=== PATIENT | female | born 1960 | race Caucasian/White ===

== ENCOUNTER 2018-07-25 20:31 | Observation (INO) ==
[2018-07-25 21:09] LABS: Basophils # (Auto) 0 K/mcL (0.0-0.3); Basophils % (Auto) 0.6 % (0.0-2.0); Eosinophils # (Auto) 0.1 K/mcL (0.0-0.7); Eosinophils % (Auto) 0.7 % (0.0-7.0); Granulocytes % (Auto) 52.6 % (38.0-78.0); Lymphocytes # (Auto) 2.8 K/mcL (1.5-4.8); Lymphocytes % (Auto) 38.4 % (15.5-49.0); Mean Cell Volume 95.1 fL (80.0-100.0); Mean Corpuscular HGB Conc 34.1 g/dL (31.0-36.0); Mean Corpuscular Hemoglobin 32.4 pg (26.0-34.0); Monocytes # (Auto) 0.6 K/mcL (0.1-0.9); Monocytes % (Auto) 7.7 % (1.0-12.0); Platelet Count 252 K/mcL (140-440); RBC 4.17 M/mcL (4.00-5.20); Red Cell Distribution Width 13.6 % (11.5-14.5)
--- NOTE | 2018-07-25 21:26 | Emergency Department Note ---
Abdominal Pain HPI - General Chief Complaint: Abdominal Pain Stated Complaint: upper abdominal pain Time Seen by Provider: 07/25/18 21:23 Source: patient Mode of arrival: ambulatory Limitations: no limitations - History of Present Illness HPI Narrative: This pleasant 58-year-old female comes in with pain onset around 7 or 730 this evening described as wrapping all the way around her abdomen just at the level of her lower ribs and upper abdomen area. She has had maybe 8 episodes similar to this in the past several months. The last was 5 days ago was only a short duration of may be a half an hour. Previous to that on the when she had a larger workup here for chest pain, the episode had lasted for hours. It does not seem to be related to meals. There is no associated nausea or vomiting or sweatiness or diarrhea or constipation or hematochezia. There is no change in her frequency which she has chronically unusual. No fevers chills or sweats. Does get some heartburn on occasion and takes Pepto-Bismol for this it has not been helpful. REVIEW OF SYSTEMS: No chest pain No back pain No headaches, weakness, dizziness. Has some chronic anxiety and depression. She is on Wellbutrin. - Related Data Allergies Allergy/AdvReac Type Severity Reaction Status Date / Time Tetracycline Allergy Verified 07/08/18 10:28 Erythromycin Base AdvReac Verified 07/08/18 10:28 Abdominal Pain PMH - Past Medical History Medical history: Reports: GERD (Somewhat minor with 7 episodes a few months ago. ). Denies: DM, hypertension Reports: other (Urinary tract infections). Denies: diverticulitis, kidney stone , pancreatitis, peptic ulcer disease Psychiatric history: Reports: anxiety, depression (Taking Wellbutrin) Family history: Reports: other (Father history of cardiac disease) - Social History Smoking status: Former smoker (Quit 3 years ago) Alcohol use: Reports: Occasionally (Few times a month) Drug use: Reports: none. Denies: marijuana Physical Exam Limitations: no limitations General appearance: alert, in no apparent distress Head: atraumatic, normocephalic Neck: Present: trachea midline. Absent: lymphadenopathy, thyromegaly Chest: Present: symmetric chest wall rise Respiratory: Present: normal lung sounds bilaterally. Absent: respiratory distress, wheezes, stridor, accessory muscle use, prolonged expiratory phase Cardiovascular: Present: regular rate, normal rhythm. Absent: systolic murmur, diastolic murmur Abdominal: Present: soft, tenderness (Subjectively only across the xiphoid level and right and left upper abdomen area.). Absent: distention, guarding, rebound, rigidity, organomegaly, mass Extremities: Absent: pedal edema, pretibial edema, calf tenderness Back: Absent: CVA tenderness (R), CVA tenderness (L), spinous process tenderness Neurological: Present: alert, oriented X3 Psychiatric: Present: normal affect, normal mood Skin: Present: warm, dry Course Course Narrative: 9 PM - upper abdominal pain with episodic pattern not related with food intake but in age group and risk factors for cholelithiasis. Will do abdominal ultrasound and labs. 9:15 PM approximately - ultrasound reported as full of stones but was not tender with the ultrasound probe overlying. Pancreas head was negative but the rest of the pancreas was not visualized. There is no gallbladder wall thickening. The common bile duct was 6 mm which is at the upper end of normal for her age group. Liver echogenic (fatty liver probably). Labs still pending. 9:35 PM - labs with an unremarkable CBC and a CMP that is fairly unremarkable except for a mildly elevated transaminase. Vital Signs Temperature 97.6 F 07/25/18 20:31 Pulse Rate 78 07/25/18 20:31 Respiratory Rate 14 07/25/18 20:31 Blood Pressure 154/113 07/25/18 20:31 Pulse Oximetry (%) 100 07/25/18 20:31 Temperature 97.6 F 07/25/18 20:31 Pulse Rate 75 07/25/18 21:46 Respiratory Rate 12 07/25/18 20:48 Blood Pressure 130/86 07/25/18 21:46 Pulse Oximetry (%) 97 07/25/18 21:46 Abdominal Pain - Lab Data Result diagrams: 07/25/18 20:40 07/25/18 20:40 Lab Results 07/25/18 07/25/18 07/25/18 Range/Units 20:40 20:40 20:40 WBC 7.4 (4.5-11.0) K/mcL RBC 4.17 (4.00-5.20) M/mcL Hgb 13.5 (12.0-15.0) g/dL Hct 39.6 (36.0-48.0) % MCV 95.1 (80.0-100.0) fL MCH 32.4 (26.0-34.0) pg MCHC 34.1 (31.0-36.0) g/dL RDW 13.6 (11.5-14.5) % Plt Count 252 (140-440) K/mcL MPV 8.6 (7.4-10.4) fL Gran % 52.6 (38.0-78.0) % Lymph % (Auto) 38.4 (15.5-49.0) % Marin % (Auto) 7.7 (1.0-12.0) % Eos % (Auto) 0.7 (0.0-7.0) % Baso % (Auto) 0.6 (0.0-2.0) % Gran # 3.9 (1.8-8.0) K/mcL Lymph # (Auto) 2.8 (1.5-4.8) K/mcL Marin # (Auto) 0.6 (0.1-0.9) K/mcL Eos # (Auto) 0.1 (0.0-0.7) K/mcL Baso # (Auto) 0 (0.0-0.3) K/mcL Sodium 138 (133-145) mmol/L Potassium 3.8 (3.3-5.1) mmol/L Chloride 99 (96-108) mmol/L Carbon Dioxide 26 (22-30) mmol/L Anion Gap 13.0 (8-16) BUN 26 H (6-20) mg/dl Creatinine 1.0 (0.6-1.1) mg/dl GFR Calculation 63 Glucose 84 (70-105) mg/dL Calcium 9.7 (8.6-10.4) mg/dl Total Bilirubin 0.3 (0.0-1.0) mg/dL AST 61 H (0-37) U/l ALT 37 (0-40) U/l Alkaline Phosphatase 80 (39-117) U/L Troponin T < 0.01 (0-0.03) ng/ml Total Protein 7.3 (5.9-8.4) gm/dL Albumin 4.5 (3.2-5.2) gm/dL Globulin 2.8 (2.2-3.7) gm/dL Albumin/Globulin Ratio 1.6 (1.0-2.3) Lipase 38 (7-60) U/L Urine Color Urine Appearance Urine pH (5.0-9.0) Ur Specific [place] (1.000-1.035) Urine Protein (NEG) mg/dL Urine Glucose (UA) (NEG) mg/dL Urine Ketones (NEG) mg/dL Urine Occult Blood (<0.03) mg/dL Urine Nitrate (NEG) Urine Bilirubin (NEG) mg/dL Urine Urobilinogen (NEG) mg/dL Ur Leukocyte Esterase (NEG) /uL Urine RBC (0-1) /hpf Urine WBC (0-4) /hpf Ur Squamous Epith Cells (0-4) /hpf Urine Bacteria (0) /hpf Hyaline Casts (0-2) /lpf Urine Mucus (0) /hpf 07/25/18 Range/Units 21:45 WBC (4.5-11.0) K/mcL RBC (4.00-5.20) M/mcL Hgb (12.0-15.0) g/dL Hct (36.0-48.0) % MCV (80.0-100.0) fL MCH (26.0-34.0) pg MCHC (31.0-36.0) g/dL RDW (11.5-14.5) % Plt Count (140-440) K/mcL MPV (7.4-10.4) fL Gran % (38.0-78.0) % Lymph % (Auto) (15.5-49.0) % Marin % (Auto) (1.0-12.0) % Eos % (Auto) (0.0-7.0) % Baso % (Auto) (0.0-2.0) % Gran # (1.8-8.0) K/mcL Lymph # (Auto) (1.5-4.8) K/mcL Marin # (Auto) (0.1-0.9) K/mcL Eos # (Auto) (0.0-0.7) K/mcL Baso # (Auto) (0.0-0.3) K/mcL Sodium (133-145) mmol/L Potassium (3.3-5.1) mmol/L Chloride (96-108) mmol/L Carbon Dioxide (22-30) mmol/L Anion Gap (8-16) BUN (6-20) mg/dl Creatinine (0.6-1.1) mg/dl GFR Calculation Glucose (70-105) mg/dL Calcium (8.6-10.4) mg/dl Total Bilirubin (0.0-1.0) mg/dL AST (0-37) U/l ALT (0-40) U/l Alkaline Phosphatase (39-117) U/L Troponin T (0-0.03) ng/ml Total Protein (5.9-8.4) gm/dL Albumin (3.2-5.2) gm/dL Globulin (2.2-3.7) gm/dL Albumin/Globulin Ratio (1.0-2.3) Lipase (7-60) U/L Urine Color Yellow Urine Appearance Clear Urine pH 6.0 (5.0-9.0) Ur Specific [place] 1.025 (1.000-1.035) Urine Protein Neg (NEG) mg/dL Urine Glucose (UA) Negative (NEG) mg/dL Urine Ketones 5/tr A (NEG) mg/dL Urine Occult Blood Neg (<0.03) mg/dL Urine Nitrate Neg (NEG) Urine Bilirubin Neg (NEG) mg/dL Urine Urobilinogen 4.0 A (NEG) mg/dL Ur Leukocyte Esterase 500 A (NEG) /uL Urine RBC 2 H (0-1) /hpf Urine WBC 14 H (0-4) /hpf Ur Squamous Epith Cells 1 (0-4) /hpf Urine Bacteria 0 (0) /hpf Hyaline Casts 4 H (0-2) /lpf Urine Mucus Mod (0) /hpf Disposition Pt seen by [employer]ARD/PA only: No Clinical Impression: Elevated transaminase measurement Abdominal pain Qualifiers: Abdominal location: upper abdomen, unspecified Qualified Code(s): R10.10 - Upper abdominal pain, unspecified Cholelithiases Qualifiers: Cholelithiasis location: gallbladder Cholecystitis presence: without cholecystitis Biliary obstruction: without biliary obstruction Qualified Code(s) : K80.20 - Calculus of gallbladder without cholecystitis without obstruction Summary: With patient having elevated liver function tests, recurrent biliary colic type of episodes, and a gallbladder full of cholelithiasis ease, I spoke with Dr. Lopez who kindly accepted this patient for admission and probable near future cholecystectomy. This was discussed with patient who was in agreement. Disposition: Xfer As Inpt ([facility]) Condition: Good Instructions: Biliary Colic (ED), Low Fat Diet (ED), Acute Abdominal Pain (ED) , Gas and Bloating (ED) Referrals: Aisha Chatman [Primary Care Provider] -
[2018-07-25 21:28] LABS: ALT/SGPT 37 U/l (0-40); Albumin 4.5 gm/dL (3.2-5.2); Albumin/Globulin Ratio 1.6 (1.0-2.3); Alkaline Phosphatase 80 U/L (39-117); Blood Urea Nitrogen 26 mg/dl (6-20); Lipase 38 U/L (7-60)
[2018-07-25 22:23] LABS: Appearance,Urine CLEAR; Bacteria,Urine 0 /hpf (0); Bilirubin,Urine NEG (NEG); Color,Urine YELLOW; Glucose,Urine (UA) NEGATIVE (NEG); Leukocyte Esterase,Urine 500 /uL (NEG); Mucus,Urine MOD /hpf (0); Protein,Urine NEG (NEG); Specific Gravity,Urine 1.025 (1.000-1.035); Urine Blood NEG mg/dL (<0.03); Urine Hyaline Cast 4 /lpf (0-2); Urine RBC 2 /hpf (0-1); Urine Squamous Epithelial Cell 1 /hpf (0-4); Urine WBC 14 /hpf (0-4)
[2018-07-25] MEDS ORDERED: ONDANSETRON 4 MG/2 ML VIAL IV PRN (22:47)
[2018-07-25] MEDS ORDERED: ZOLPIDEM 5 MG TABLET PO PRN (22:47)
[2018-07-25] MEDS ORDERED: HYDROmorphone 2 MG/ML VIAL IV PRN (22:47)
--- NOTE | 2018-07-25 22:57 | General Surg History&Physical ---
History of Present Illness Patient information: Note initiated : 07/25/18 at 10:55 pm Service Date, if different from initiated Date: [] Patient: Cha Sutherland a 58 y/o F admitted on for upper abdominal pain. Chief Complaint: [] HPI: Ms. Sutherland is a 58 year old F admitted with symptomatic gallstone disease. The patient has had severe upper abdominal pain with at least 8 episodes over the past 2 months. Her last prior episode was on Friday of this week. She has right upper quadrant and Epigastric pain which radiates across her abdomen and into her back. She was evaluated for cardiac disease with negative findings.. upper abdominal ultrasound reveals multiple gallstones with normal bile duct. Her liver panel is normal.. Patient had relief of symptoms with analgesics, however, she still has mild tenderness to deep palpation. Patient is admitted with plans for cholecystectomy in the morning Review of Systems - Gastrointestinal abdominal pain, bloating, heartburn, nausea - Musculoskeletal arthralgias, other (joint pains) - Psychiatric depression - Hematologic/Lymphatic no easy bleeding, no easy bruising, no lymphadenopathy Past History Past medical history: . Moderate depression Past surgical history: Tubal ligation. Right knee arthroscopy Past family history: Father in his 50s due to coronary artery disease. Local with coronary artery disease. Mother age 81 with no known medical illness Past social history: Former smoker. Occasional use of alcohol. Denies drug use Medications and Allergies Home Medications Medication Instructions Recorded Confirmed Type No Known Home Meds 07/25/18 07/25/18 History Allergies Allergy/AdvReac Type Severity Reaction Status Date / Time Tetracycline Allergy Verified 07/08/18 10:28 Erythromycin Base AdvReac Verified 07/08/18 10:28 Exam Temp Pulse Resp BP Pulse Ox 97.6 F 75 12 130/86 97 07/25/18 20:31 07/25/18 21:46 07/25/18 20:48 07/25/18 21:46 07/25/18 21:46 - General physical appearance well developed, well nourished, no distress - Eyes PERRL, normal ocular movement - ENT normal pinna, normal nares, normal mucosa, no hearing loss, no congestion - Head Head exam IM: Present: atraumatic, normocephalic - Neck no masses, no bruits, trachea midline, no lymphadectomy, no venous distension - Cardiovascular Cardiovascular exam IM: Present: normal rate and rhythm - Respiratory normal expansion, normal respiratory effort, clear to percussion, clear to auscultation - Abdomen Abdomen: Present: soft, tender (mild epigastric tenderness and right subcostal tenderness), bowel sounds Hernia: Present: none - Genitourinary Present: normal external genitalia - Integumentary Present: no rash, no growths, no abnormal pigmentation - Neurologic Present: normal coordination, normal sensation - Musculoskeletal Present: normal gait, normal posture - Psychiatric Present: oriented to time, oriented to person, oriented to place, speech is normal, memory intact Assessment and Plan (1) Cholelithiasis with cholecystitis without obstruction Nothing by mouth after midnight.. Start Zosyn for antibiotic coverage. Plan for cholecystectomy tomorrow Status: Acute Qualifiers: Cholelithiasis location: gallbladder Cholecystitis acuity: chronic Qualified Code(s): K80.10 - Calculus of gallbladder with chronic cholecystitis without obstruction
[2018-07-25] MEDS: 0.9 % SODIUM CHLORIDE 1,000 ML IV SCH (23:08)
[2018-07-25] MEDS: PIPERACILLIN SODIUM/TAZOBACTAM 3.375 GM in DEXTROSE 5% IN WATER 50 ML IV SCH (23:41)
[2018-07-26] MEDS: PIPERACILLIN SODIUM/TAZOBACTAM 3.375 GM in DEXTROSE 5% IN WATER 50 ML IV SCH ×5 (05:12→23:29)
[2018-07-26] MEDS ORDERED: 0.9 % SODIUM CHLORIDE 10 ML SYRINGE IV SCH (06:00)
[2018-07-26 06:58] LABS: Basophils # (Auto) 0 K/mcL (0.0-0.3); Basophils % (Auto) 0.4 % (0.0-2.0); Eosinophils # (Auto) 0 K/mcL (0.0-0.7); Eosinophils % (Auto) 0.5 % (0.0-7.0); Granulocytes % (Auto) 59.1 % (38.0-78.0); Lymphocytes # (Auto) 1.6 K/mcL (1.5-4.8); Lymphocytes % (Auto) 35.1 % (15.5-49.0); Mean Cell Volume 95.8 fL (80.0-100.0); Mean Corpuscular HGB Conc 33.8 g/dL (31.0-36.0); Mean Corpuscular Hemoglobin 32.4 pg (26.0-34.0); Monocytes # (Auto) 0.2 K/mcL (0.1-0.9); Monocytes % (Auto) 4.9 % (1.0-12.0); Platelet Count 202 K/mcL (140-440); RBC 3.91 M/mcL (4.00-5.20); Red Cell Distribution Width 13.4 % (11.5-14.5)
[2018-07-26] MEDS: 0.9 % SODIUM CHLORIDE 1,000 ML IV SCH ×3 (07:00→21:48)
[2018-07-26 07:26] LABS: Albumin 3.9 gm/dL (3.2-5.2); Albumin/Globulin Ratio 1.6 (1.0-2.3); Alkaline Phosphatase 136 U/L (39-117); Bilirubin,Direct 0.4 mg/dL (0.0-0.3); Blood Urea Nitrogen 19 mg/dl (6-20); Gamma Glutamyl Transpeptidase 172 U/L (5-36)
[2018-07-26 07:36] LABS: ALT/SGPT 859 U/l (0-40)
--- NOTE | 2018-07-26 08:27 | XRay Report ---
CLINICAL INFORMATION: preop evaluation COMPARISON: 07/08/2018 FINDINGS: The heart size, mediastinum and pulmonary vessels are unremarkable. The lungs are clear. There are no effusions. The bones and soft tissues are within normal limits. IMPRESSION: Normal chest. Interpreted and Authenticated by: Gagan Jefferson 07/26/18
[2018-07-26] MEDS ORDERED: ONDANSETRON 4 MG/2 ML VIAL IV ONE (10:10)
[2018-07-26] MEDS ORDERED: GLYCOPYRROLATE 0.2 MG/ML VIAL IV ONE (10:10)
[2018-07-26] MEDS ORDERED: KETOROLAC 30 MG/ML VIAL IV ONE (10:10)
[2018-07-26] MEDS ORDERED: ROCURONIUM 10 MG/ML ML IV ONE (10:10)
[2018-07-26] MEDS ORDERED: KETAMINE 100 MG/ML ML IV ONE (10:10)
[2018-07-26] MEDS ORDERED: PHENYLEPHRINE 10 MG/ML VIAL IV ONE (10:10)
[2018-07-26] MEDS ORDERED: fentaNYL 250 MCG/5 ML VIAL IV ONE (10:10)
[2018-07-26] MEDS ORDERED: DEXAMETHASONE 10 MG/ML VIAL IV ONE (10:10)
[2018-07-26] MEDS ORDERED: MIDAZOLAM 2 MG/2 ML VIAL IV ONE (10:10)
[2018-07-26] MEDS ORDERED: SUCCINYLCHOLINE 20 MG/ML ML IV ONE (10:10)
--- NOTE | 2018-07-26 10:24 | Ultrasound Report ---
CLINICAL INFORMATION: band like upper abdominal pain COMPARISON: None. FINDINGS: Liver is normal in size and is diffusely hyperechoic most compatible with fatty change. No focal hepatic lesions. There are multiple stones in the gallbladder. Gallbladder wall is normal - 3 mm and there is no focal gallbladder tenderness that would support cholecystitis. Common bile duct is normal 6 mm. Pancreas is suboptimally visualized shows no gross abnormality. No free fluid IMPRESSION: Cholelithiasis. Liver compatible with fatty change Interpreted and Authenticated by: Gagan Jefferson 07/26/18
[2018-07-26] MEDS ORDERED: ONDANSETRON 4 MG/2 ML VIAL IV PRN ×2 (10:44→12:29)
[2018-07-26] MEDS ORDERED: ACETAMINOPHEN 1,000 MG/100 ML BOTTLE IV ONE (10:44)
[2018-07-26] MEDS ORDERED: LACTATED RINGERS 250 ML IV PRN (10:44)
[2018-07-26] MEDS ORDERED: IPRATROPIUM/ALBUTEROL 3 ML AMPUL.NEB NEB PRN (10:44)
[2018-07-26] MEDS ORDERED: fentaNYL 100 MCG/2 ML VIAL IV PRN (10:44)
[2018-07-26] MEDS ORDERED: NALOXONE HCL 0.4 MG/ML VIAL IV PRN (10:44)
[2018-07-26] MEDS ORDERED: PROMETHAZINE 25 MG/ML VIAL IV PRN (10:44)
[2018-07-26] MEDS ORDERED: BENZOCAINE/MENTHOL 1 LOZENGE PO PRN (10:44)
[2018-07-26] MEDS ORDERED: MEPERIDINE 25 MG/ML SYRINGE IV PRN (10:44)
[2018-07-26] MEDS ORDERED: METHOCARBAMOL 1,000 MG/10 ML VIAL IV PRN (10:44)
[2018-07-26] MEDS ORDERED: FLUMAZENIL 0.1 MG/ML ML IV PRN (10:44)
[2018-07-26] MEDS ORDERED: LACTATED RINGERS 1,000 ML IV SCH (10:45)
--- NOTE | 2018-07-26 11:03 | Brief Operative Note ---
Date of procedure: 07/26/18 Pre-op diagnosis: cholelithiasis with cholecystitis Post-op diagnosis: other (cholelithiasis with cholecystitis) Procedure: LAPAROSCOPIC CHOLECYSTECTOMY Grafts/Implants: No Anesthesia: GETA Findings: EDEMATOUS GALLBLADDER WITH MULTIPLE STONES Complications: none Surgeon: Nan Lopez Estimated blood loss (cc): 5 Specimens Removed/Pathology: other (GALLBLADDER) Disposition: PACU
[2018-07-26] MEDS ORDERED: HYDROmorphone 2 MG/ML VIAL IV PRN (12:29)
[2018-07-26] MEDS ORDERED: ACETAMINOPHEN 1,000 MG/100 ML BOTTLE IV PRN (12:29)
[2018-07-26] MEDS: 0.9 % SODIUM CHLORIDE 10 ML SYRINGE IV SCH (14:53)
[2018-07-26] MEDS ORDERED: ZOLPIDEM 5 MG TABLET PO PRN (21:00)
[2018-07-27] MEDS: 0.9 % SODIUM CHLORIDE 10 ML SYRINGE IV SCH ×2 (00:25→05:51)
[2018-07-27] MEDS: PIPERACILLIN SODIUM/TAZOBACTAM 3.375 GM in DEXTROSE 5% IN WATER 50 ML IV SCH ×2 (05:51→11:54)
[2018-07-27] MEDS: 0.9 % SODIUM CHLORIDE 1,000 ML IV SCH (06:39)
[2018-07-27 09:33] LABS: Basophils # (Auto) 0 K/mcL (0.0-0.3); Basophils % (Auto) 0.3 % (0.0-2.0); Eosinophils # (Auto) 0 K/mcL (0.0-0.7); Eosinophils % (Auto) 0 % (0.0-7.0); Granulocytes % (Auto) 79.7 % (38.0-78.0); Lymphocytes # (Auto) 1.5 K/mcL (1.5-4.8); Lymphocytes % (Auto) 15.9 % (15.5-49.0); Mean Cell Volume 96.1 fL (80.0-100.0); Mean Corpuscular HGB Conc 33.2 g/dL (31.0-36.0); Mean Corpuscular Hemoglobin 31.9 pg (26.0-34.0); Monocytes # (Auto) 0.4 K/mcL (0.1-0.9); Monocytes % (Auto) 4.1 % (1.0-12.0); Platelet Count 163 K/mcL (140-440); Red Cell Distribution Width 13.6 % (11.5-14.5)
[2018-07-27 10:01] LABS: ALT/SGPT 678 U/l (0-40); Albumin 3.5 gm/dL (3.2-5.2); Albumin/Globulin Ratio 1.4 (1.0-2.3); Alkaline Phosphatase 130 U/L (39-117); Bilirubin,Direct < 0.2 mg/dL (0.0-0.3); Blood Urea Nitrogen 9 mg/dl (6-20); Gamma Glutamyl Transpeptidase 165 U/L (5-36); Uric Acid 1.9 mg/dL (2.5-8.0)
--- NOTE | 2018-07-27 14:39 | Discharge Summary ---
Providers - Providers Patient information: Note initiated : 07/27/18 at 2:37 pm Service Date, if different from initiated Date: [] Patient: Cha Sutherland 58 y/o F admitted on 07/25/18 for Upper Abdominal Pain/ Cholelithiasis. Chief Complaint: [] Date of admission: 07/25/18 Discharge date: 07/27/18 Attending physician: Nan Lopez Hospitalization Hospital course: 58 y/o female admitted with abdominal pain. She has known gallstone disease times many months. Her last attack was a few days prior to admission. She presented to the emergency room with abdominal pain and nausea. She also had significant abdominal tenderness. Patient was admitted and underwent laparoscopic cholecystectomy on 26 July 2018. She has done well overnight and is stable for discharge. Discharge diagnosis: CHOLELITHIASIS WITH CHOLECYSTITIS Reason for admission: RECURRENT ABDOMINAL PAIN Procedures: Laparoscopic cholecystectomy Complications: NONE Exam Temp Pulse Resp BP Pulse Ox 97.5 F 79 16 122/77 97 07/27/18 07:29 07/27/18 04:00 07/27/18 07:29 07/27/18 07:29 07/27/18 07:29 - General physical appearance well developed, well nourished, no distress - Eyes PERRL, normal ocular movement - ENT normal pinna, normal nares, normal mucosa, no hearing loss, no congestion - Head Head exam IM: Present: atraumatic, normocephalic - Neck no masses, no bruits, trachea midline, no lymphadectomy, no venous distension - Cardiovascular Cardiovascular exam IM: Present: normal rate and rhythm - Respiratory normal expansion, normal respiratory effort, clear to percussion, clear to auscultation - Abdomen Abdomen: Present: soft, tender (MILD PORT SITE TENDERNESS), bowel sounds Hernia: Present: none - Integumentary Present: no rash, no growths, no abnormal pigmentation - Neurologic Present: normal coordination, normal sensation - Musculoskeletal Present: normal gait, normal posture - Psychiatric Present: oriented to time, oriented to person, oriented to place, speech is normal, memory intact Discharge Plan - Patient/Caregiver Discharge Instructions Activity: increase activity as tolerated Diet: Regular Diet, Low Fat Additional Instructions: office visit on AUG 06 for staple removal. - Follow up Plan Follow up with: Aisha Chatman [Primary Care Provider] - Disposition: Home, Self-Care Prognosis: Good Rehab Potential: Good I certify that the patient requires SNF services.: No Overall status at discharge: patient is not back to baseline Pending Studies Resuscitation Status Full Code Diet GI Soft/Transitional Start FriJul 27 831 Hydromorphone HCl (Dilaudid) 1 mg IV Q2HP PRN PRN Reason: PAIN LEVEL > 6 Last Admin: 07/26/18 17:43 Dose: 1 mg Sodium Chloride (Sodium Chloride 0.9%) 1,000 mls @ 125 mls/hr IV .Q8H KARY Last Admin: 07/27/18 06:39 Dose: 125 mls/hr Infusion: 07/27/18 05:48 Dose: 125 mls/hr Admin: 07/26/18 21:48 Dose: 125 mls/hr Infusion: 07/26/18 20:30 Dose: 125 mls/hr Admin: 07/26/18 12:30 Dose: 125 mls/hr Piperacillin Sod/Tazobactam (Sod 3.375 gm/ Dextrose) 50 mls @ 100 mls/hr IV Q6H KARY Last Admin: 07/27/18 11:54 Dose: 100 mls/hr Infusion: 07/27/18 06:29 Dose: 0 mls/hr Admin: 07/27/18 05:51 Dose: 100 mls/hr Infusion: 07/26/18 23:59 Dose: 100 mls/hr Admin: 07/26/18 23:29 Dose: 100 mls/hr Infusion: 07/26/18 18:13 Dose: 100 mls/hr Admin: 07/26/18 17:43 Dose: 100 mls/hr Infusion: 07/26/18 15:22 Dose: 100 mls/hr Admin: 07/26/18 13:00 Dose: 100 mls/hr Acetaminophen (Ofirmev) 1,000 mg in 100 mls @ 200 mls/hr IV Q6HP PRN PRN Reason: Pain Last Admin: 07/27/18 04:47 Dose: 200 mls/hr Ondansetron HCl (Zofran) 4 mg IV Q6HP PRN PRN Reason: Nausea And Vomiting Last Admin: 07/26/18 18:58 Dose: 4 mg Sodium Chloride (Saline Flush) 10 ml IV Q8 KARY Last Admin: 07/27/18 05:51 Dose: Not Given Admin: 07/27/18 00:25 Dose: Not Given Admin: 07/26/18 14:53 Dose: Not Given Shift Summary 07/27/18 04:22 Shift Summary by Herson Carrasco Pt has rested well tonight - did not sleep last noc. She has had min pain - 1mg IV dilaudid given @ 1745 - no request for PRN pain med this shift. Pt did have a few episodes of nausea early in the jovita - IV Zofran given @ 190 - none since. She has denied nausea or pain since 2029. She is up AMB (I) in rm - voiding QS into hat. ABD lap sites x4 - smita & tegaderm in place scant amt sangious drainage showing. VS - WNL on R.A. - B/P normally a bit low. She is A &O x4, calm, pleasant, & cooperative. Initialized on 07/27/18 04:22 - END OF NOTE
--- NOTE | 2018-07-28 11:38 | Surgical Pathology Report ---
HISTOLOGY SPECIMEN MICROSCOPIC DIAGNOSIS GALLBLADDER, CHOLECYSTECTOMY: -- CHRONIC CHOLECYSTITIS WITH CHOLELITHIASIS. (RLF:[email or web address]) PROCEDURAL IMPRESSION Cholelithiasis with cholecystitis without obstruction. GROSS DESCRIPTION Received in formalin labeled with the patient information and designated as gallbladder, is a 6.1 x 2.7 x 2.5 cm pink-vásquez gallbladder. The serosa is mostly smooth and glistening with approximately 30% roughened brown-vásquez. There are two metal clamps present and none on the cystic duct. There is a 0.2 x 0.1 cm opening in the roughened brown-vásquez area. The mucosa is light pink-vásquez with no lesions or masses identified. The wall is up to 0.2 cm thick. There are multiple yellow-vásquez multifacted stones found within the gallbladder specimen and in the cystic duct. [employer] Lead sections submitted in one cassette. (FREDW:[email or web address]) Electronically Signed by: Juliana Asif M.D.
--- NOTE | 2018-07-31 11:13 | Operative Note ---
DATE OF OPERATION: 07/26/2018 PREOPERATIVE DIAGNOSIS: Cholelithiasis with cholecystitis. POSTOPERATIVE DIAGNOSIS: Cholelithiasis with cholecystitis. PROCEDURE: Laparoscopic cholecystectomy. SURGEON: Nan Lopez M.D. FINDINGS: Edematous gallbladder with multiple stones. DESCRIPTION OF PROCEDURE: Under general anesthesia, the patient's abdomen was prepped and draped in a sterile field. Timeout procedure was carried out as per protocol. Supraumbilical incision was made and Veress needle was inserted uneventfully. The abdomen was insufflated with 2.5 liters of CO2. A 12 mm port was placed. Laparoscope was placed. Under videoscopic guidance, a 12 mm port and two 5 mm ports were placed in the right subcostal region. The patient was positioned in reverse Trendelenburg position. The gallbladder was grasped and positioned. Cystic duct was dissected and followed back to the gallbladder. Cystic artery was followed onto the wall of the gallbladder. Cystic duct was then clipped with five clips and divided. Cystic artery was clipped with four clips and divided. The gallbladder was then from the infrahepatic bed using electrocautery and blunt dissection. The gallbladder was placed in an Endopouch and retrieved. Irrigation in the bed was carried out, and hemostasis was achieved. CO2 was allowed to escape from the abdomen, and the ports were removed. Fascia at the umbilicus was closed with 0 Vicryl. Skin incisions were closed with smita. Dressings were placed. The patient was awakened from anesthesia uneventfully, extubated, transferred to a bed, and taken to the postanesthetic care unit in stable, satisfactory condition. LCS:[email or web address] Job ID: [id number] Doc ID: [id number] Nan Lopez M.D.
== END 2018-07-27 16:53 | disposition home or self-care (01) ==
LOC: MEDSUR 20:31 → ED 20:31 → MEDSUR 23:17
PROVIDERS: ADMIT Family Medicine Adult Medicine; ATTEND Family Medicine Adult Medicine

== ENCOUNTER 2019-09-06 06:40 | Inpatient (IN) ==
[2019-08-31 20:21] LABS: Appearance,Urine CLEAR; Bilirubin,Urine NEG (NEG); Color,Urine YELLOW; Glucose,Urine (UA) NEGATIVE (NEG); Ketones,Urine NEG (NEG); Leukocyte Esterase,Urine NEG /uL (NEG); Nitrate,Urine NEG (NEG); Protein,Urine NEG (NEG); Specific Gravity,Urine 1.017 (1.000-1.035); Urine Blood NEG mg/dL (<0.03)
[2019-08-31 20:21] LABS: Blood Urea Nitrogen 17 mg/dl (6-20); Calcium 9.5 mg/dl (8.6-10.4); Carbon Dioxide 23 mmol/L (22-30); Chloride 103 mmol/L (96-108); Glomerular Filtration Rate 82; Glucose 89 mg/dL (70-105)
[2019-08-31 20:28] LABS: Basophils # (Auto) 0 K/mcL (0.0-0.3); Basophils % (Auto) 0.5 % (0.0-2.0); Eosinophils # (Auto) 0 K/mcL (0.0-0.7); Eosinophils % (Auto) 0.8 % (0.0-7.0); Granulocytes % (Auto) 55.3 % (38.0-78.0); Hematocrit 42.6 % (36.0-48.0); Lymphocytes # (Auto) 2.2 K/mcL (1.5-4.8); Lymphocytes % (Auto) 37.8 % (15.5-49.0); Mean Cell Volume 95.5 fL (80.0-100.0); Mean Corpuscular HGB Conc 32.9 g/dL (31.0-36.0); Monocytes # (Auto) 0.3 K/mcL (0.1-0.9); Monocytes % (Auto) 5.6 % (1.0-12.0); Platelet Count 233 K/mcL (140-440); RBC 4.46 M/mcL (4.00-5.20); Red Cell Distribution Width 13.3 % (11.5-14.5); WBC 5.8 K/mcL (4.5-11.0)
[~2019-09-06 06:40] MED LIST: 0.9 % SODIUM CHLORIDE 9 ML, KETOROLAC 30 MG, ROPIVACAINE HCL/PF 49.5 ML, EPINEPHrine 0.... IJ SCH; ACETAMINOPHEN 500 MG TABLET PO SCH; CELECOXIB 200 MG CAPSULE PO SCH; IPRATROPIUM/ALBUTEROL 3 ML AMPUL.NEB NEB PRN; PREGABALIN 75 MG CAPSULE PO SCH; SCOPOLAMINE 1 PATCH PATCH TOPICAL PRN; ceFAZolin 2 GM in DEXTROSE 5% IN WATER 50 ML IV SCH; oxyCODONE 10 MG TAB.ER.12H PO SCH
[2019-09-06] MEDS ORDERED: ONDANSETRON 4 MG/2 ML VIAL IV ONE (09:06)
[2019-09-06] MEDS ORDERED: MIDAZOLAM 5 MG/5 ML VIAL IV ONE (09:06)
[2019-09-06] MEDS ORDERED: ePHEDrine 50 MG/ML AMPUL IV ONE (09:06)
[2019-09-06] MEDS ORDERED: LIDOCAINE HCL/PF 100 MG/5 ML SYRINGE IV ONE (09:06)
[2019-09-06] MEDS ORDERED: TRANEXAMIC ACID 1,000 MG/10 ML VIAL IV ONE ×2 (09:06→10:32)
[2019-09-06] MEDS ORDERED: DEXAMETHASONE 10 MG/ML VIAL IV ONE (09:06)
[2019-09-06] MEDS ORDERED: SUCCINYLCHOLINE 20 MG/ML ML IV ONE (09:06)
[2019-09-06] MEDS ORDERED: PHENYLEPHRINE 10 MG/ML VIAL IV ONE (09:06)
[2019-09-06] MEDS ORDERED: PROPOFOL 200 MG/20 ML VIAL IV ONE (09:06)
[2019-09-06] MEDS ORDERED: GENTAMICIN SULFATE 800 MG/20 ML VIAL IR ONE (09:40)
[2019-09-06] MEDS ORDERED: METHOCARBAMOL 1,000 MG/10 ML VIAL IV PRN (09:50)
[2019-09-06] MEDS ORDERED: IPRATROPIUM/ALBUTEROL 3 ML AMPUL.NEB NEB PRN (09:50)
[2019-09-06] MEDS ORDERED: PROMETHAZINE 25 MG/ML VIAL IV PRN (09:50)
[2019-09-06] MEDS ORDERED: ePHEDrine 50 MG/ML AMPUL IV PRN (09:50)
[2019-09-06] MEDS ORDERED: ATROPINE SULFATE 0.4 MG/ML VIAL IV PRN (09:50)
[2019-09-06] MEDS ORDERED: HYDROmorphone 2 MG/ML VIAL IV PRN (09:50)
[2019-09-06] MEDS ORDERED: METOPROLOL TARTRATE 5 MG/5 ML VIAL IV PRN (09:50)
[2019-09-06] MEDS ORDERED: fentaNYL 100 MCG/2 ML VIAL IV PRN (09:50)
[2019-09-06] MEDS ORDERED: FLUMAZENIL 0.1 MG/ML ML IV PRN (09:50)
[2019-09-06] MEDS ORDERED: diphenhydrAMINE 50 MG/ML VIAL IV PRN (09:50)
[2019-09-06] MEDS ORDERED: ONDANSETRON 4 MG/2 ML VIAL IV PRN ×2 (09:50→10:32)
[2019-09-06] MEDS ORDERED: MEPERIDINE 25 MG/ML SYRINGE IV PRN (09:50)
[2019-09-06] MEDS ORDERED: NALOXONE HCL 0.4 MG/ML VIAL IV PRN (09:50)
[2019-09-06] MEDS ORDERED: LACTATED RINGERS 1,000 ML IV SCH (10:00)
--- NOTE | 2019-09-06 10:31 | Brief Operative Note ---
Date of procedure: 09/06/19 Pre-op diagnosis: left hip djd Post-op diagnosis: same Procedure: Left hip total joint cementless Grafts/Implants: Yes Anesthesia: KALEIGHA Surgeon: Tono Almonte Head Mechanic: Bhupendra Crowder Estimated blood loss (cc): 100 Tourniquet Time (Minutes): 0 Specimens Removed/Pathology: none sent Condition: stable Disposition: PACU
[2019-09-06] MEDS ORDERED: MAGNESIUM HYDROXIDE 30 ML ORAL.SUSP PO PRN (10:32)
[2019-09-06] MEDS ORDERED: BISACODYL 10 MG SUPP.RECT PR PRN (10:32)
[2019-09-06] MEDS ORDERED: BENZOCAINE/MENTHOL 1 LOZENGE PO PRN (10:32)
[2019-09-06] MEDS ORDERED: FLEETS ADULT ENEMA PR PRN (10:32)
[2019-09-06] MEDS ORDERED: ACETAMINOPHEN 325 MG TABLET PO PRN (10:32)
[2019-09-06] MEDS ORDERED: KETOROLAC 15 MG/ML VIAL IV PRN (10:32)
[2019-09-06] MEDS ORDERED: TEMAZEPAM 15 MG CAPSULE PO PRN (10:32)
[2019-09-06] MEDS ORDERED: POLYETHYLENE GLYCOL 3350 17 GM PACKET PO PRN (10:32)
--- NOTE | 2019-09-06 10:32 | XRay Report ---
CLINICAL INFORMATION: LEFT TOTAL HIP COMPARISON: None. FINDINGS: Interoperative film shows right femoral stem template in near-anatomic alignment. The prosthetic acetabulum appears more anteverted and laterally canted than typically seen. No osseous abnormality. IMPRESSION: Intraoperative films as described Interpreted and Authenticated by: Gagan Jefferson 09/06/19
[2019-09-06] MEDS ORDERED: CYCLOBENZAPRINE 10 MG TABLET PO PRN (10:35)
--- NOTE | 2019-09-06 10:57 | Operative Note ---
DATE OF OPERATION: 09/06/2019 PREOPERATIVE DIAGNOSIS: Left hip degenerative arthritis. POSTOPERATIVE DIAGNOSIS: Left hip degenerative arthritis. PROCEDURE: Left total hip arthroplasty. SURGEON: Tono Almonte M.D. UNIT AIDE: Bhupendra Crowder PA-C. The PA's assistance was required for the safe and efficient completion of the entire case. This provider's expertise and technical skill were required throughout the case. The PA assisted with preoperative coordination, intraoperative retraction, wound closure, dressing and splint application, as well as postoperative documentation and care coordination. ANESTHESIA: General LMA anesthesia. COMPLICATIONS: None. ESTIMATED BLOOD LOSS: About 100 mL. INDICATION FOR SURGERY: This is a very pleasant 59-year-old who has failed all conservative measures, which include anti-inflammatories, Tylenol, and injections into her hip, both into the hip joint and trochanteric region over the last 2 years. She is now only walking a few blocks without pain and cannot sit for more than 30 minutes. These affected her activities of daily living significantly. DESCRIPTION OF PROCEDURE: After patient was brought to the operating room and put to sleep with general LMA anesthesia, a timeout was performed confirming the operative site as left hip by initials, consent form, and x-rays. Once this was done, we then placed Ioban over the skin and made a superior approach to the hip. We went through the fascial layer and placed the Charnley retractor. We then released the superior capsule. The piriformis was also released. The hip was subluxed or dislocated, and we made our neck cut at about 10 mm above the lesser trochanter. Once done, we subluxed the hip anteriorly. We reamed up to the size 50, placed a 50 cup with a 30 mm screw. A hooded liner was placed. The cup was placed at 45 degrees of inclination and 20 degrees of anteversion. Once done, we irrigated thoroughly. We prepared the femur. This was reamed up and lateralized. We broached up to the size 11 stem. We then took x-rays intraoperatively for leg length offset which was perfect. We then implanted a size 11 stem with a small amount of cement distally because of her bone quality. The stem was placed at 15 degrees of anteversion and had a +3 neck length with a 36 mm ceramic ball. The patient tolerated this well. There was no complication. We repaired the capsule with #1 Stratafix. We then closed the skin with Stratafix and subcutaneous closure with glue, adhesive closure superficially. Sterile bandage was applied. RBH:[email or web address] Job ID: [id number] Doc ID: [id number] Tono Almonte MD
[2019-09-06] MEDS: LACTATED RINGERS 1,000 ML IV SCH ×2 (11:36→22:32)
--- NOTE | 2019-09-06 12:10 | XRay Report ---
CLINICAL INFORMATION: Post-Op Total Hip COMPARISON: None. 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 No osseous abnormality. Soft tissue swelling seen as expected IMPRESSION: Negative Interpreted and Authenticated by: Gagan Jefferson 09/06/19
--- NOTE | 2019-09-06 12:42 | Discharge Summary ---
Ortho Discharge - [facility] - Patient Instructions Diet: Regular Diet Activity: activity as tolerated, weight bearing as tolerated Total Hip Protocol: Follow activity instructions as provided by Physical Therapy. Dressing Care: May shower in 2 days - Follow Up Plan Follow Up Appointments: Bhupendra Crowder PA-C [Physician Air Conditioning Manager] - 09/21/19 8:50 am Disposition: Home, Self-Care Prognosis: Good Rehab Potential: Good I certify that the patient requires SNF services: No Overall status at discharge: patient is progressing back to baseline - Orders For Discharge Prescriptions: Docusate Sodium [Colace] 100 mg PO BID #60 cap Transmission Status: Pending to [facility] Aspirin [Ecotrin] 325 mg PO BID #[email or web address] tab.ec Transmission Status: Pending to [facility] oxyCODONE [Oxycontin] 10 mg PO Q12 PRN #20 tab.er.[id number] PRN Reason: Pain Prescription Printed oxyCODONE/APAP [Percocet 5-325 mg] 1 - 2 tab PO Q4HP PRN #75 tab PRN Reason: Per Pain Protocol Prescription Printed
[2019-09-06] MEDS: HYDROmorphone 2 MG/ML VIAL IV PRN ×2 (12:45→15:10)
[2019-09-06] MEDS: oxyCODONE/APAP 5/325MG TABLET PO PRN ×2 (15:09→22:47)
[2019-09-06] MEDS: ceFAZolin 1 GM VIAL IV SCH ×2 (16:51→22:31)
[2019-09-06] MEDS: 0.9 % SODIUM CHLORIDE 10 ML SYRINGE IV SCH ×2 (17:13→23:32)
[2019-09-06] MEDS ORDERED: SENNOSIDES 1 TABLET PO SCH (21:00)
[2019-09-06] MEDS: ASPIRIN 325 MG ENTERIC COATED TABLET PO SCH (22:32)
[2019-09-06] MEDS: DOCUSATE SODIUM 100 MG CAPSULE PO SCH (22:32)
[2019-09-07] MEDS: oxyCODONE/APAP 5/325MG TABLET PO PRN ×2 (04:32→08:48)
[2019-09-07] MEDS: 0.9 % SODIUM CHLORIDE 10 ML SYRINGE IV SCH (06:01)
[2019-09-07] MEDS: ASPIRIN 325 MG ENTERIC COATED TABLET PO SCH (08:49)
[2019-09-07] MEDS: DOCUSATE SODIUM 100 MG CAPSULE PO SCH (08:50)
[2019-09-07] MEDS ORDERED: ESCITALOPRAM 10 MG TABLET PO SCH (09:00)
[2019-09-07] MEDS ORDERED: FLU VACC QS2019-20(6MOS UP)/PF 60 MCG/0.5 ML SYRINGE IM ONE (10:00)
[2019-09-07] MEDS: LACTATED RINGERS 1,000 ML IV SCH (13:50)
== END 2019-09-07 12:14 | disposition home or self-care (01) | DRG 470 ==
LOC: MEDSUR 06:40
PROVIDERS: ADMIT Orthopaedic Surgery; ATTEND Orthopaedic Surgery